=== PATIENT | female | born 1995 | race American Indian/Alaskan Native ===

== ENCOUNTER 2019-06-15 15:14 | Emergency (ER) | payer SELFPAY ==
--- NOTE | 2019-06-15 15:52 | Event Note ---
ED Screening Note Date of service: 06/15/19 ED Screening Note: Pt complains of dysuria, urinary frequency, and intermittent hematuria x 1 month +vaginal discharge and lower abdominal pain denies fever or flank pain This initial assessment/diagnostic orders/clinical plan/treatment(s) is/are subject to change based on patients health status, clinical progression and re- assessment by fellow clinical providers in the ED. Further treatment and workup at subsequent clinical providers discretion. Patient/guardian urged not to elope from the ED as their condition may be serious if not clinically assessed and managed. Initial orders include: UA
[2019-06-15 16:39] LABS: Bilirubin,Urine NEG (Negative); Blood,Urine NEG (Negative); Color,Urine Yellow (Yellow); Mucus,Urine FEW /HPF; Protein,Urine <15 mg/dL mg/dL (Negative); Urobilinogen,Urine < 2.0 mg/dL (<2.0)
[2019-06-15 16:41] LABS: HCG Qualitative,Urine Negative (Negative)
--- NOTE | 2019-06-15 20:00 | Emergency Department Report ---
ED Female HPI - General Chief complaint: Urogenital-Female Stated complaint: ABD PAIN,BLOOD AND BURNING WHEN URINATING Time Seen by Provider: 06/15/19 15:51 Source: patient Mode of arrival: Ambulatory Limitations: No Limitations - History of Present Illness Initial comments: Patient is a 23-year-old -[place] female with no past medical history presents to the ED with complaint of acute onset persistent intermittent suprapubic pressure, vaginal discharge with malodorous smell, dysuria and hematuria intermittently for the last 1 month. Patient states that she is not sexually active. Patient denies nausea, vomiting, urinary frequency and urgency, dizziness, vaginal bleeding, abdominal pain, diarrhea, low back pain, fever and chills. MD Complaint: vaginal discharge, dysuria, pelvic pain (suprapubic pressure), other (vaginal discharge with malodorous smell) -: Gradual, month(s) (1) Location: suprapubic, other (vaginal) Radiation: non-radiating Severity: moderate Severity scale (0 -10): 5 Quality: dull, aching Consistency: intermittent Improves with: none Worsens with: urination Are you Now?: No Last Menstrual Period: 06/12/19 EDC: 03/18/20 Associated Symptoms: denies other symptoms, vaginal discharge, vaginal bleeding, dysuria, hematuria. denies: abdominal pain, nausea/vomiting, fever/chills, headaches, loss of appetite, rash, seizure, shortness of breath, syncope, weakness, other - Related Data Sexually active: No : 0 Para: 0 A: 0 Previous Rx's Medication Instructions Recorded Last Taken Type Fluconazole [Diflucan TAB] 150 mg PO ONCE #2 tablet 06/15/19 Unknown Rx Ibuprofen [Motrin] 800 mg PO Q8HR PRN #20 tablet 06/15/19 Unknown Rx metroNIDAZOLE [Flagyl] 500 mg PO Q12HR #14 tab 06/15/19 Unknown Rx Allergies Allergy/AdvReac Type Severity Reaction Status Date / Time No Known Allergies Allergy Unverified 06/15/19 15:26 ED Review of Systems ROS: Stated complaint: ABD PAIN,BLOOD AND BURNING WHEN URINATING Other details as noted in HPI Constitutional: denies: chills, fever Eyes: denies: eye pain, eye discharge, vision change ENT: denies: ear pain, throat pain Respiratory: denies: cough, shortness of breath, wheezing Cardiovascular: denies: chest pain, palpitations Endocrine: no symptoms reported Gastrointestinal: denies: abdominal pain, nausea, diarrhea Genitourinary: dysuria, hematuria, discharge. denies: urgency Musculoskeletal: denies: back pain, joint swelling, arthralgia Skin: denies: rash, lesions Neurological: denies: headache, weakness, paresthesias Psychiatric: denies: anxiety, depression Hematological/Lymphatic: denies: easy bleeding, easy bruising ED Past Medical Hx - Social History Smoking Status: Never Smoker Substance Use Type: None - Medications Home Medications: Home Medications Medication Instructions Recorded Confirmed Last Taken Type Fluconazole [Diflucan TAB] 150 mg PO ONCE #2 tablet 06/15/19 Unknown Rx Ibuprofen [Motrin] 800 mg PO Q8HR PRN #20 tablet 06/15/19 Unknown Rx metroNIDAZOLE [Flagyl] 500 mg PO Q12HR #14 tab 06/15/19 Unknown Rx ED Physical Exam - General Limitations: No Limitations General appearance: alert, in no apparent distress - Head Head exam: Present: atraumatic, normocephalic, normal inspection - Eye Eye exam: Present: normal appearance, PERRL, EOMI Pupils: Present: normal accommodation - ENT ENT exam: Present: normal exam, normal orophraynx, mucous membranes moist, TM's normal bilaterally, normal external ear exam - Neck Neck exam: Present: normal inspection, full ROM - Respiratory Respiratory exam: Present: normal lung sounds bilaterally. Absent: respiratory distress, wheezes, rales, chest wall tenderness, accessory muscle use - Cardiovascular Cardiovascular Exam: Present: regular rate, normal rhythm, normal heart sounds. Absent: systolic murmur, diastolic murmur, rubs, gallop - GI/Abdominal GI/Abdominal exam: Present: soft, normal bowel sounds. Absent: tenderness, guarding, rebound, hyperactive bowel sounds, hypoactive bowel sounds, organomegaly - Bi-manual exam: Present: other (pelvic exam deferred) - Extremities Exam Extremities exam: Present: normal inspection, full ROM, normal capillary refill - Back Exam Back exam: Present: normal inspection, full ROM. Absent: tenderness, muscle spasm, paraspinal tenderness, vertebral tenderness - Neurological Exam Neurological exam: Present: alert, oriented X3, CN II-XII intact, normal gait, reflexes normal - Psychiatric Psychiatric exam: Present: normal affect, normal mood - Skin Skin exam: Present: warm, dry, intact, normal color. Absent: rash ED Medical Decision Making - Medical Decision Making This is a 23-year-old nulliparous female who presented to the ED with persistent vaginal discharge, hematuria, dysuria for one month intermittently. In the ED, patient is alert and oriented 3 and is not in distress. Urinalysis is unremarkable. This and the patient's physical exam findings and history, patient was discharged home on medications and advised to follow-up with Primary care physician or STUDENT SPECIALIST physician in 7-10 days for reevaluation. Patient was discharged home on Flagyl and Diflucan. - Differential Diagnosis Bacterial vaginosis; Katherine vaginitis; UTI Critical care attestation.: If time is entered above; I have spent that time in minutes in the direct care of this critically ill patient, excluding procedure time. ED Disposition Clinical Impression: Bacterial vaginosis, Vaginitis due to Katherine Disposition: DC- TO HOME OR SELFCARE Is pt being admited?: No Does the pt Need Aspirin: No Condition: Stable Instructions: Bacterial Vaginosis (ED), Vaginitis (ED) Additional Instructions: Take medications with food, drink plenty of fluids and follow-up. Primary care physician in 7-10 days for reevaluation. Return to the ED immediately if symptoms get worse. Prescriptions: Fluconazole [Diflucan TAB] 150 mg PO ONCE #2 tablet metroNIDAZOLE [Flagyl] 500 mg PO Q12HR #14 tab Ibuprofen [Motrin] 800 mg PO Q8HR PRN #20 tablet PRN Reason: Pain , Severe (7-10) Referrals: JONNA PERDUE MD [Staff Physician] - 3-5 Days Forms: STI Treatment and Prevention Time of Disposition: 20:05 Print Language: DANISH
[2019-06-15 20:34] VITALS: BP 121/82
== END 2019-06-15 20:34 | disposition home or self-care (01) ==
LOC: ED 15:14
DX: B37.3 Candidiasis of vulva and vagina (principal)
CPT/HCPCS: 81001; 81025; 99283